=== PATIENT | male | born 1965 | race Caucasian/White ===

== ENCOUNTER 2018-01-28 12:06 | Emergency (ER) | END 2018-01-28 13:06 | disposition home or self-care (01) ==

== ENCOUNTER 2018-01-30 17:53 | Emergency (ER) | END 2018-01-30 20:09 | disposition home or self-care (01) ==

== ENCOUNTER 2018-02-05 12:08 | Emergency (ER) | END 2018-02-05 14:14 | disposition home or self-care (01) ==